=== PATIENT | female | born 1960 | race Caucasian/White ===

== ENCOUNTER 2020-11-15 16:46 | Outpatient (CLI) | payer BC, SELFPAY ==
--- NOTE | ~2020-11-15 | MM_ITS ---
EXAMINATION: MM screening [facility] BI w mell HISTORY: Screening mammogram TECHNIQUE: Craniocaudal and mediolateral oblique 3-D tomosynthesis images were obtained and synthetic 2-D images were generated. CAD analysis was submitted and interpreted. COMPARISON: 06/17/2019, 05/26/2019, 05/27/2017 BREAST PARENCHYMAL COMPOSITION: The breasts are almost entirely fatty. FINDINGS: There is no evidence of suspicious mass, calcification, or architectural distortion to sugg est malignancy in either breast. There has been no suspicious interval change. IMPRESSION: 1. No mammographic evidence of malignancy. 2. Recommend routine screening mammography in one year. BI-RADS Category 1: Negative Reviewed, dictated and finalized at location A.
== END 2020-11-15 16:47 | disposition home or self-care (01) ==
LOC: ANHIMG 16:48
PROVIDERS: PCP Internal Medicine; Visit Provider Obstetrics & Gynecology
DX: Z12.31 Encounter for screening mammogram for malignant neoplasm of breast (principal)
CPT/HCPCS: 77063; 77067

== ENCOUNTER 2021-04-10 11:25 | Outpatient (CLI) | payer BC, SELFPAY ==
--- NOTE | 2021-04-10 11:31 | ECG_ITS ---
Measurements Intervals [place] Rate: 60 P: -53 [place]: 352 QRS: -5 QRSD: 87 T: 40 QT: 402 QTc: 402 Interpretive Statements SINUS RHYTHM BORDERLINE AV CONDUCTION DELAY BORDERLINE ECG Electronically Signed On 04-10-2021 12:35:29 CDT by Brando Tompkins D.O.
== END 2021-04-10 11:26 | disposition home or self-care (01) ==
LOC: ANHLAB 11:29
PROVIDERS: PCP Internal Medicine; Visit Provider Internal Medicine
DX: I10 Essential (primary) hypertension (principal)
CPT/HCPCS: 93005

== ENCOUNTER 2021-12-31 14:52 | Outpatient (CLI) | payer BC, SELFPAY ==
--- NOTE | ~2021-12-31 | MM_ITS ---
EXAMINATION: MM screening [facility] BI w mell HISTORY: Screening TECHNIQUE: Craniocaudal and mediolateral oblique 3-D tomosynthesis images were obtained and synthetic 2-D images were generated. CAD analysis was submitted and interpreted. COMPARISON: Comparison to multiple prior studies sequentially, with oldest reviewed study dated 04/07. BREAST PARENCHYMAL COMPOSITION: The breasts are almost entirely fatty. FINDINGS: There is no evidence of suspicious mass, calcification, or architectural distortion to sugg est malignancy in either breast. There has been no suspicious interval change. IMPRESSION: 1. No mammographic evidence of malignancy. 2. Recommend routine screening mammography in one year. BI-RADS Category 1: Negative Reviewed, dictated and finalized at location A.
== END 2021-12-31 14:53 | disposition home or self-care (01) ==
LOC: ANHIMG 14:54
PROVIDERS: PCP Internal Medicine; Visit Provider Obstetrics & Gynecology
DX: Z12.31 Encounter for screening mammogram for malignant neoplasm of breast (principal)
CPT/HCPCS: 77063; 77067

== ENCOUNTER 2022-05-10 12:31 | Outpatient (CLI) | payer BC, SELFPAY ==
[2022-05-10 13:55] LABS: Anion Gap 12 mmol/L (8-16); Blood Urea Nitrogen 24 mg/dL (7-17); Calcium 8.8 mg/dL (8.4-10.2); Carbon Dioxide 29 mmol/L (22-30); Chloride 99 mmol/L (98-107); Estimated Glomerular Filt Rate > 60; Glucose 91 mg/dL (65-110); Potassium 3.9 mmol/L (3.4-5.0); Sodium 140 mmol/L (137-145)
== END 2022-05-10 12:32 | disposition home or self-care (01) ==
LOC: ANHSURGERY 12:35
PROVIDERS: Anesthesiology; PCP Internal Medicine; Visit Provider Urology
DX: Z79.899 Other long term (current) drug therapy (principal); Z01.818 Encounter for other preprocedural examination
CPT/HCPCS: 36415; 80048

== ENCOUNTER 2022-05-13 01:28 | Day surgery (SDC) | payer BC, SELFPAY ==
--- NOTE | 2022-04-26 10:24 | PM.IMHP ---
H&P: HPI History of Present Illness Date/Time: 04/26/22 10:24 Chief Complaint: Urge incontinence Narrative: 61-year-old with urge incontinence. InterStim device in place since 2014. She has less than 6 months of battery life left. She is here today for battery placement. The lead is working well. Will not disturbed sleep Review of Systems Review of Systems: All systems reviewed & are unremarkable except as noted in HPI and below PMFSH Past Medical History Medical History Bleeding disorder Family History Family History Mother Diabetes mellitus Family history of arthritis Family history of pancreatic cancer Sibling Family history of blood dyscrasia Hypertension Father Family history of blood dyscrasia Asthma Family history of cardiovascular disease, Onset Age: 75 Family history of heart disease in male family member before age 55 Social History Social History Smoking status: Former smoker Second hand tobacco smoke exposure: No Alcohol intake: current Alcohol use details: rarely Substance use: never Substance use type: does not use Meds Home Medications and Allergies Home Medications Medication Instructions Recorded Confirmed Type cholecalciferol (vitamin D3) 25 5,000 unit PO DAILY 11/30/20 03/21/22 History mcg (1,000 unit) capsule calcium carbonate 500 mg calcium 500 mg PO DAILY 09/11/21 03/21/22 History (1,250 mg) tablet cyanocobalamin (vitamin B-12) 1,000 mcg PO DAILY 09/11/21 03/21/22 History 1,000 mcg capsule multivitamin (Daily Multi-Vitamin 1 tablet PO DAILY 09/11/21 03/21/22 History tablet) esomeprazole magnesium 40 mg See Rx Instructions .Route 11/05/21 03/21/22 Rx capsule,delayed release .COMPLEX #90 caps levothyroxine 75 mcg tablet See Rx Instructions .Route 03/08/22 03/21/22 Rx .COMPLEX #90 tabs metoprolol tartrate 50 mg tablet See Rx Instructions .Route 03/08/22 03/21/22 Rx .COMPLEX #180 tabs hydrochlorothiazide 12.5 mg tablet 12.5 mg PO DAILY #90 tabs 03/21/22 03/21/22 Rx rosuvastatin 10 mg tablet 10 mg PO DAILY #90 tabs 03/21/22 03/21/22 Rx losartan 100 mg tablet 100 mg PO DAILY #90 tabs 04/09/22 Rx amitriptyline 75 mg tablet 75 mg PO QHS #90 tabs 04/22/22 Rx Allergies Allergy/AdvReac Type Severity Reaction Status Date / Time NSAIDS (Non-Steroidal Allergy Unknown Unknown Verified 03/21/22 07:03 Anti-Inflamma codeine AdvReac Unknown NAUSEA/VOMI Verified 03/21/22 07:03 TING Exam Narrative: No acute distress Normal review Alert orient x3 Assessment and Plan Assessment and plan (1) Urge incontinence: Code(s): N39.41 - Urge incontinence Status: Acute Assessment and Plan: Exchange of her neurostimulator battery. Risks of bleeding, infection, device damage reviewed. Agrees to proceed
[2022-05-08 14:39] VITALS: BMI 39.1
--- NOTE | 2022-05-08 14:43 | PC.NURSE ---
Report to the Outpatient Waiting Room, entrance under the green pavilion located off [facility], at time 10:30 on date 05/13/22. Planned Procedure Time: 12:30. Time changes happen often and if your time is changed the preop area will call you the afternoon before. - You and your visitor will be asked to self-screen and do not enter if you have any COVID symptoms. - We encourage only one visitor and NO visitors under age 16 are allowed at this time. Your visitor will receive communication by the phone number that is given day of service. - The patient visitor is requested to social distance or may leave the building when not with patient due to restrictions. - A mask is OPTIONAL within the hospital. Patients may have clear liquids (water, carbonated beverages, clear teas, apple juice) until 3 hours prior to surgery (9:30) with a maximum of 20 ounces. - No food from midnight until time of surgery Take the following medications with a SIP of water the morning of surgery: LEVOTHYROXINE, METOPROLOL Medications to discontinue per physician: VITAMINS Date to take last dose: 05/09/22 Please no make-up, nail colombian, hairspray, perfume, deodorant, or body powder the day of surgery. No jewelry (including any body piercings) or valuables the day of surgery, leave them at home. Please take a shower or bath the night before, or the morning of, surgery with an antibacterial soap. Wear comfortable, loose fitting clothing. - Jewelry must be removed prior to entering the operating room. Rings and piercings that are not removed may be cut off. - The hospital will not accept responsibility for valuables. - Please leave all valuables, including medications, at home the day of surgery. If you are going home after surgery, a licensed waste collection driver must drive you home. - NO public transportation without another adult. - We recommend that an adult stay with you for 24 hours following discharge. - We also recommend that you do not drive, make important decision, drink alcoholic beverages, or take any drugs that were not prescribed by your health care provider for at least 24 hours after your discharge time. Follow any additional instructions given to you from your surgeon. If you or anyone in your household have experienced Covid symptoms in the past week, please notify your surgeon or the nurse liaison at the phone number below for possible testing. Telephone instructions given to KIRK DIAMOND and asked if any additional questions and then verbalized understanding. Patient advised to call surgeon office or pre surgery nurse liaison [phone] if any additional questions.
--- NOTE | 2022-05-13 07:13 | WPDHPUPDATE1 ---
History and Physical Update Update Date/Time: 05/13/22 07:13 History and Physical has been reviewed, including an updated exam of the patient. There are NO changes in the patient's condition. Risks, benefits, and alternatives have been discussed and questions answered. Patient agrees to proceed with procedure.
[2022-05-13] MEDS: LACTATED RINGERS 1,000 ML 30 ML IV CONT (11:00)
[2022-05-13 11:20] VITALS: BP 142/70; PULSE 67; RESP 16; TEMP 36.7; O2SAT 100
[2022-05-13] MEDS: ceFAZolin 2 GM/D5W 50 ML 2 GM/50 ML BAG IVPB (12:30)
[2022-05-13 12:40] VITALS: BP 185/84; PULSE 62; RESP 16; O2SAT 95
[2022-05-13 12:50] VITALS: BP 165/77; PULSE 65; RESP 18; O2SAT 95
[2022-05-13] MEDS: BUPIVACAINE/EPINEPHRINE 0.25% 50 ML VIAL INFILTRATE (13:00)
[2022-05-13 13:01] VITALS: BP 150/82; PULSE 56; RESP 16; O2SAT 100
--- NOTE | 2022-05-13 15:42 | P.OP_ITS ---
Procedure Note - Detailed Date of Procedure 05/13/22 Pre-op Diagnosis Urinary Urge Incont Post-op Diagnosis Same Procedure Performed Exchange of neurostimulator battery, and complex neurostimulator programming impedance check Surgeon Tim Colunga MD Bilingual Loan Processor None Anesthesia Local Indications This is a woman with InterStim device in place since 2014. Her battery is reaching end of service. The lead looks normal on x-ray. She is receiving symptomatic benefit. He is here today for a battery exchange. In light of her comorbidities and the minimally invasive nests of this procedure were gone do this under local anesthesia. She understands risks of bleeding, infection, maged ge to the lead. She is to proceed Description of Procedure She has correctly identified. Informed consent obtained. She from the operating room. She was placed in prone position. Lower back and buttock were prepped and draped in a sterile fashion. Time-out performed. I anesthetized the skin with cord% Marcaine with epinephrine. I did this over the site of the previously placed battery. I incised the skin. I easily explanted the battery. A new battery was programmed. Appropriate connections were made. It was placed into the pocket. Impedances were checked and found to be normal. I irrigated out the wound copiously. I assured hemostasis. I closed subcutaneous tissues with 2-0 Vicryl. Skin with 4-0 Vicryl. Glue was applied. She was awakened transferred to PACU in stable condition Implants InterStim battery Estimated Blood Loss 2 Drains No Packing No Pathology None sent Complications No immediate complications Condition Stable
== END 2022-05-13 13:27 | disposition home or self-care (01) ==
PROVIDERS: PCP Internal Medicine; Visit Provider Urology
PROC: (CPT 64590; principal; 2022-05-13 12:30)
DX: Z45.42 Encounter for adjustment and management of neurostimulator (principal); N39.41 Urge incontinence; Z87.891 Personal history of nicotine dependence
CPT/HCPCS: 64590; C1767; C1787; J0690; J7120

== ENCOUNTER 2023-06-04 09:21 | Emergency (ER) | payer BC, SELFPAY ==
[2023-06-04] VITALS (23 sets, daily range): BP systolic 88–147; BP diastolic 57–88; PULSE 73–88; RESP 12–26; TEMP 36.9; O2SAT 93–98
--- NOTE | ~2023-06-04 | CT_ITS ---
EXAMINATION: CTA chest PE protocol DATE: 06/04/2023 13:41 PHYTOCHEMISTRY PROFESSOR INDICATION: Shortness of breath. Positive d-dimer. Cough with wheezing. TECHNIQUE: Computed tomographic angiography (CTA) of the chest was performed with 100 mL Omnipaque-35 0 intravenous contrast. The dose-length product was 987.67 mGy-cm. Maximum intensity projection 3D-re constructions of the aorta and other arteries were constructed by the technologist on a separate work station. COMPARISON: 6 3 dated 06/04/[address] dated 01/20/2015. FINDINGS: There is a 1.4 x 1.2 cm mass of the right lower lobe, image 56. Stable 5 mm right lower lob e nodule, image 72. Study is technically adequate without evidence for pulmonary embolism. No signifi cant pleural or pericardial effusion. There are changes of gastric bypass surgery. There are probable gallstones with gallbladder sludge. No evidence for aortic aneurysm or dissection. No focal airspace consolidation. There is dependent atelectasis. IMPRESSION: 1. No evidence for pulmonary embolism. 2: Spiculated right lower lobe nodule measuring 1.4 x 1.2 cm, compared with 1.2 x 0.8 cm on prior exa mination. Slow-growing neoplasm not excluded. Recommend correlation with pet/CT scan. Reviewed, dictated and finalized at location B. OCHEMISTRY PROFESSOR IMPRESSION: 1. No evidence for pulmonary embolism. 2: Spiculated right lower lobe nodule measuring 1.4 x 1.2 cm, compared with 1.2 x 0.8 cm on prior examination. Slow-growing neoplasm not excluded. Recommend c orrelation with pet/CT scan.
--- NOTE | ~2023-06-04 | XR_ITS ---
EXAMINATION: XR chest 2V 06/04/2023 09:55 INDICATION: Cough and wheezing PROCEDURE: 2 view chest COMPARISON: Comparison to multiple prior studies sequentially, with oldest reviewed study dated 03/05. FINDINGS: The lungs are clear. The cardiomediastinal silhouette is within normal limits. There are no pleural effusions. There is no pneumothorax suspected. IMPRESSION: 1: NO ACUTE CARDIOPULMONARY DISEASE. Reviewed, dictated and finalized at location B. RETE PRECAST MOULDER
--- NOTE | 2023-06-04 11:38 | ECG_ITS ---
Measurements Intervals [place] Rate: 81 P: 28 MD: 176 QRS: -15 QRSD: 86 T: 42 QT: 383 QTc: 445 Interpretive Statements SINUS RHYTHM LOW QRS VOLTAGE IN PRECORDIAL LEADS BORDERLINE R WAVE PROGRESSION, ANTERIOR LEADS BASELINE ARTIFACT- II, III, AVR, AVL, AVF BORDERLINE ECG COMPARED TO ECG 04/10/2021 11:58:25 NO SIGNIFICANT CHANGES Electronically Signed On 06-04-2023 15:13:49 AIR DRILL OPERATOR by Brando Tompkins D.O.
[2023-06-04 11:50] LABS: Basophils Percent Auto 0.2 % (0.2-1.2); Eosinophils Absolute Auto 0.3 K/mm3 (0-0.3); Eosinophils Percent Auto 1.9 % (0-4.4); Hemoglobin 14.5 g/dL (12.0-15.0); Immature Granulocyte Absolute 0.06 K/mm3 (0.00-0.031); Immature Granulocyte Percent A 0.5 % (0-0.5); Lymphocytes Absolute Auto 0.88 K/mm3 (0.9-3.2); Lymphocytes Percent Auto 6.8 % (18.3-44.2); Mean Corpuscular HGB Conc 32.2 g/dl (32-36); Mean Corpuscular Hemoglobin 27.6 pg (26-34); Mean Corpuscular Volume 85.7 fl (80-100); Mean Platelet Volume 10.1 fl (7.4-10.4); Monocytes Absolute Auto 0.5 K/mm3 (0.1-0.6); Monocytes Percent Auto 3.7 % (2.6-8.5); Neutrophils Absolute Auto 11.3 K/mm3 (1.3-6.7); Neutrophils Percent Auto 86.9 % (45.5-73.1); Platelet Count Result 278 k/mm3 (150-375); Red Blood Count 5.25 M/mm3 (4.2-5.4); Red Cell Distribution Width 14.8 % (11.5-14.5); White Blood Count 12.9 K/mm3 (4.5-10.0)
--- NOTE | 2023-06-04 12:12 | ED.GENADULT ---
HPI - General Adult General Chief complaint: Shortness of Breath/Dyspnea Stated complaint: SOB Time Seen by Provider: 06/04/23 11:39 History of Present Illness HPI narrative: [age] old female presenting to the emergency department for evaluation of increased shortness of breath. Patient reports she had an upper respiratory infection on May 05 that lasted approximately 2 weeks. Patient states she felt improved for about 10 days and then last Friday started developing worsening shortness of breath again. Patient states since that time she has had progressive cough and wheezing. Patient states that she did take a COVID test at home that was negative. Patient denies any prior history of DVT or pulmonary embolism. Related Data Home Medications Medication Instructions Recorded Confirmed cholecalciferol (vitamin D3) 25 5,000 unit PO DAILY 11/30/20 06/02/23 mcg (1,000 unit) capsule calcium carbonate 500 mg calcium 500 mg PO DAILY 09/11/21 06/02/23 (1,250 mg) tablet cyanocobalamin (vitamin B-12) 1,000 mcg PO DAILY 09/11/21 06/02/23 1,000 mcg capsule multivitamin (Daily Multi-Vitamin 1 tablet PO DAILY 09/11/21 06/02/23 tablet) Allergies Allergy/AdvReac Type Severity Reaction Status Date / Time codeine AdvReac Unknown NAUSEA/VOMI Verified 04/03/23 07:56 TING NSAIDS (Non-Steroidal AdvReac Unknown Gastrointestinal Verified 04/03/23 07:56 Anti-Inflamma Upset Review of Systems Review of Systems: All systems reviewed & are unremarkable except as noted in HPI and below PMFSH Past Medical History Medical History Acquired hypothyroidism Bleeding disorder Essential hypertension Pure hypercholesterolemia Surgical History Surgical History H/O gastric sleeve Family History Family History Mother Diabetes mellitus Family history of arthritis Family history of pancreatic cancer Sibling Family history of blood dyscrasia Hypertension Father Family history of blood dyscrasia Asthma Family history of cardiovascular disease, Onset Age: 75 Family history of heart disease in male family member before age 55 Social History Social History Smoking status: Never smoker Second hand tobacco smoke exposure: No Alcohol intake: never Alcohol use details: rarely Substance use: never Substance use type: does not use Lack of Transportation: No Lack of Food: Never True Current Housing: I Have Housing Concerned About Future Housing: No Difficulty Paying Gas/Electric Bills: No Difficulty Paying for Meds: No Currently Unemployed: No Education: High School Diploma/GED Difficulty w/ Childcare or Family Care: No Living arrangements: alone Spiritual care concerns: No Exam Narrative: APPEARANCE: Well appearing, no pain, no distress, well-nourished. HEAD: normocephalic, atraumatic. EYES: PERRLA/EOMI, conjunctivae clear. NOSE: Normal no drainage EARS:TMS clear with good light reflex. THROAT: Pharynx clear, no exudate. NECK: Supple. No adenopathy, no masses. RESPIRATORY: Airway patent, respirations nonlabored. Clear to auscultation bilaterally, no rales, rhonchi, wheezing. CARDIOVASCULAR: Regular rate and rhythm without murmurs rubs or gallops. ABDOMINAL: Soft, nontender, nondistended, normal bowel sounds MUSCULOSKELETAL: Moves all extremities. Strength/ROM intact, No edema, No calf tenderness. NEURO: Alert. Cranial nerves II through XII intact. Good gait. Good coordination SKIN: Warm, dry. Normal Color PSYCHIATRIC: Normal affect/mood. Course Course Emergency Course: 62-year-old female present to the emergency department for evaluation of increased shortness of breath. Patient is afebrile but does have a leukocytosis of 12.9 and a stable hemogl
[2023-06-04] MEDS: ALBUTEROL SULFATE NEB 2.5 MG/3 ML INH INHALATION ×2 (12:18→15:19)
[2023-06-04 12:28] LABS: Influenza A QL RT-PCR Negative (Negative); Influenza B QL RT-PCR Negative (Negative); RSV RNA, RT-PCR Negative (Negative); SARS-CoV-2 RNA PCR Negative (Negative)
[2023-06-04 13:11] LABS: D Dimer 7.23 ug/mL (<0.48)
[2023-06-04 13:15] LABS: Alanine Aminotransferase 30 U/L (6-35); Alkaline Phosphatase 103 U/L (38-126); Anion Gap 10 mmol/L (8-16); Aspartate Amino Transferase 32 U/L (14-36); Blood Urea Nitrogen 24 mg/dL (7-17); Calcium 8.7 mg/dL (8.4-10.2); Carbon Dioxide 27 mmol/L (22-30); Chloride 98 mmol/L (98-107); Estimated CRCL calculation 61 ml/min; Estimated Glomerular Filt Rate 50; Glucose 100 mg/dL (65-110); Potassium 3.6 mmol/L (3.4-5.0); Sodium 135 mmol/L (137-145)
[2023-06-04 13:18] LABS: NT Pro B Type Natriuretic Pept 49 pg/mL (19.9-100)
--- NOTE | 2023-06-04 14:31 | PC.NURSE ---
pt ambulated with pulse ox. pt tolerated well. only dropped to 92 %. states feels much better than she did this am. upon getting back to bed sats quickly increased to 95%. pt states she wouldnt have been able to walk that distance this morning.
== END 2023-06-04 15:34 | disposition home or self-care (01) ==
PROVIDERS: Emergency Provider Emergency Medicine; PCP Nurse Practitioner Family
DX: R06.00 Dyspnea, unspecified (principal); I10 Essential (primary) hypertension; E03.9 Hypothyroidism, unspecified; Z79.899 Other long term (current) drug therapy; Z20.822 Contact with and (suspected) exposure to COVID-19
CPT/HCPCS: 36415; 71046; 71275; 80053; 83880; 85025; 85380; 87637; 93005; 94640; 99284; Q9967

== ENCOUNTER 2023-06-19 09:08 | Outpatient (CLI) | payer BC, SELFPAY ==
--- NOTE | ~2023-06-19 | PE_ITS ---
EXAMINATION: PET skull to mid thigh DATE: 06/19/2023 11:15 INDICATION: Other nonspecific abnormal finding in lung field. TECHNIQUE: Blood glucose level was 88 mg/dL. 9.802 mCi of 18-fluorodeoxyglucose (18-FDG) was administ ered i.v. Low dose computed tomography (CT) images were acquired from the base of the brain to the pr oximal thighs for attenuation correction and anatomic localization. Automated exposure control was em ployed. Dose-length product (DLP) was 1309 mGy-cm. Positron emission tomography (PET) images were acq uired in the same distribution. COMPARISON: Chest CT 06/04/2023, 01/20/15 FINDINGS: Head/neck: There are no pathologically enlarged lymph nodes. Chest: In the right lower lobe at the hilum, there is a 12 mm nodule without increased activity. No p leural effusion. The heart size is normal. No pericardial effusion. Abdomen/pelvis/proximal thighs: There are changes of gastric sleeve procedure. The liver is normal. T here are gallstones in the gallbladder, which is normal in size. The spleen, pancreas, adrenal glands , and kidneys are normal. There is an electrode in left S3 neural foramen. There are no dilated loops of bowel. The appendix is normal. There are no pathologically enlarged lymph nodes. There is no free intraperitoneal fluid. There are bilateral total hip arthroplasties. There is no osseous malignancy. IMPRESSION: 1. 12 mm right lower lobe pulmonary nodule without increased activity, not significantly changed from 11 mm on 01/20/2015, likely benign. Reviewed, dictated and finalized at location A. GER TRANSPLANT IMPRESSION: 1. 12 mm right lower lobe pulmonary nodule without increased activity, not sign ificantly changed from 11 mm on 01/20/2015, likely benign.
[2023-06-19 09:39] LABS: Glucose Point of Care 88 mg/dl (65-105)
== END 2023-06-19 09:09 | disposition home or self-care (01) ==
PROVIDERS: PCP Nurse Practitioner Family; Visit Provider Nurse Practitioner Family
DX: R91.1 Solitary pulmonary nodule (principal)
CPT/HCPCS: 78815; A9552

== ENCOUNTER 2023-11-11 16:46 | Outpatient (CLI) | payer BC, SELFPAY ==
--- NOTE | ~2023-11-11 | MM_ITS ---
EXAMINATION: MM screening [facility] BI w mell HISTORY: Screening mammogram TECHNIQUE: Craniocaudal and mediolateral oblique 3-D tomosynthesis images were obtained and synthetic 2-D images were generated. CAD analysis was submitted and interpreted. COMPARISON: 12/31/2021, 11/15/2020 bilateral screening mammogram examinations BREAST PARENCHYMAL COMPOSITION: The breasts are almost entirely fatty. FINDINGS: There is no evidence of suspicious mass, calcification, or architectural distortion to sugg est malignancy in either breast. There has been no suspicious interval change. IMPRESSION: 1. No mammographic evidence of malignancy. 2. Recommend routine screening mammography in one year. BI-RADS Category 1: Negative Reviewed, dictated and finalized at location A.
== END 2023-11-11 16:47 | disposition home or self-care (01) ==
PROVIDERS: PCP Nurse Practitioner Family; Visit Provider Obstetrics & Gynecology
DX: Z12.31 Encounter for screening mammogram for malignant neoplasm of breast (principal)
CPT/HCPCS: 77063; 77067

== ENCOUNTER 2024-06-07 10:13 | Outpatient (CLI) | payer BC, SELFPAY ==
[2024-06-28 16:25] VITALS: BMI 42.7
--- NOTE | 2024-06-28 16:25 | P.SLEEP_ITS ---
Sleep Study - Home Unattended Date of Study: 06/07/24 Ordering Provider: Konrad Mills APRN Interpreting Provider: Silvia Gunter, DO Home Sleep Study Type: Watch PAT Height: 1.68 m Weight: 120.202 kg Body Mass Index: 42.7 Neck Circumference (inches): 16.75 [place]: 4 Reason for Sleep Study Evaluation for sleep apnea Sleep History The patient is a 63-year-old female that had a sleep study ordered by the [facility] for evaluation of sleep apnea. The patient denies awakening from sleep short of breath. She denies awakening at night with heartburn, belching or cough. She occasionally snores but is never loud enough that others complain. She denies having trouble sleeping when she has a cold. She denies waking up gasping for air throughout the night. She denies having breathing problems at night observed by herself or others. She denies sweating excessively at night. She denies having heart palpable or irregular heartbeats during the night. She rarely falls asleep during the day but never while driving. She denies sleep paralysis, cataplexy and hypnagogic / hypnopompic hallucinations. She denies having trouble at school or work due to sleepiness. She denies feeling afraid of going to sleep. She denies having nightmares. She rarely remembers her dreams. She denies having thoughts racing through her mind. She denies feeling sad, depressed or anxious. She denies having muscular tension. She rarely notices parts of her body jerk. She denies kicking during the night. She denies having crawling and aching feelings in her legs and denies having leg pain during the night. She frequently grinds her teeth during sleep but never awakens with morning jaw pain. She is frequently bothered by pain during the day but never awakened by pain during the night. She occasionally wakes up feeling stiff in the morning. She occasionally wakes up with sore or achy muscles. She occasionally wakes up with pain in the neck, spine or other joints. She goes to bed at 10:15 p.m. on weekdays and at 11:00 p.m. on the weekends. It takes her 15-20 minutes to fall asleep. She wakes up once throughout night for unknown reasons but is able to fall back asleep within 5 minutes. She wakes up at 6:00 a.m. on weekdays and at 7:00 a.m. on the weekends. She typically gets 6-7 hours of sleep per night. She will stay in bed for 5 minutes after waking up in the morning. She currently lives alone. She denies consuming any caffeinated beverages within 2 hours of bedtime. She denies engaging in physical exercise before bedtime. She will watch television before falling asleep. She denies taking naps in afternoon or evening. She denies consuming caffeinated beverages throughout the day. She denies tobacco, alcohol and recreational drug use. [facility] Past Medical History Medical History Bleeding disorder Acquired hypothyroidism Essential hypertension Pure hypercholesterolemia Surgical History Surgical History History of bladder suspension procedure History of right hip replacement 07/2012 History of left hip replacement 10/2005 H/O gastric sleeve Family History Family History Mother Diabetes mellitus Family history of arthritis Family history of pancreatic cancer Sibling Family history of blood dyscrasia Hypertension Father Family history of blood dyscrasia Asthma Family history of cardiovascular disease, Onset Age: 75 Family history of heart disease in male family member before age 55 Social History Social History Smoking status: Never smoker Second hand tobacco smoke exposure: No Alcohol intake: never Alcohol use details: rarely Substance use: never Substance use type: does not use Do You Feel Safe in your Home?: Yes Lack of Transportation: No Lack of Food: Never True Current Housing: I Have Housing Concerned About Future Housing: No Difficulty Paying Gas/Electric Bills: No Difficulty Paying for Meds: No Currently Unemployed: No Education: High School Diploma/GED Difficulty w/ Childcare or Family Care: No Living arrangements: alone Occupation/Education: 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 Gender identity (if verbalized by the patient): Female Sexual Orientation (if Verbalized by the Patient): Straight or Heterosexual Spiritual care concerns: No Agree to blood products: Yes Medications Home Medications ?Medication ?Instructions ?Recorded ?Confirmed ?Type cholecalciferol (vitamin D3) 25 5,000 unit PO DAILY 11/30/20 05/04/24 History mcg (1,000 unit) capsule calcium carbonate 500 mg PO DAILY 09/11/21 05/04/24 History cyanocobalamin (vitamin B-12) 1,000 mcg PO DAILY 09/11/21 05/04/24 History 1,000 mcg capsule multivitamin (Daily Multi-Vitamin 1 tablet PO DAILY 09/11/21 05/04/24 History tablet) bupropion HCl 150 mg 24 hr tablet, 150 mg PO QAM #90 tabs 03/01/24 05/04/24 Rx extended release (Wellbutrin XL) amitriptyline 75 mg tablet See Rx Instructions .Route 03/25/24 05/04/24 Rx .COMPLEX #90 tabs esomeprazole magnesium 40 mg See Rx Instructions .Route 04/05/24 05/04/24 Rx capsule,delayed release .COMPLEX #90 caps hydrochlorothiazide 12.5 mg tablet 12.5 mg PO DAILY #90 tabs 04/05/24 05/04/24 Rx levothyroxine 75 mcg tablet See Rx Instructions .Route 04/05/24 05/04/24 Rx .COMPLEX #90 tabs losartan 100 mg tablet 100 mg PO DAILY #90 tabs 04/05/24 05/04/24 Rx metoprolol tartrate 50 mg tablet See Rx Instructions .Route 04/05/24 05/04/24 Rx .COMPLEX #180 tabs rosuvastatin 10 mg tablet See Rx Instructions .Route 04/05/24 05/04/24 Rx .COMPLEX #90 tabs topiramate 100 mg tablet 100 mg PO BID #60 tabs 05/04/24 05/04/24 Rx metformin 500 mg tablet,extended 500 mg PO BID 90 days #180 tabs 05/06/24 Rx release 24 hr tirzepatide (weight loss) 2.5 2.5 mg (0.5 mL) subcut WEEKLY #2 mL 05/27/24 Rx mg/0.5 mL subcutaneous pen injector (Zepbound) Sleep Procedure The sleep study was completed using WatchPAT a technically adequate device with seven channels: peripheral arterial tone, actigraphy, body position, snore, respiratory movement, pulse oximetry, sleep staging, and heart rate. Prior to using the device, the patient received verbal and written instructions for its application and was provided with the help desk phone number for additional telephonic instruction with 24-hour availability of qualified personnel to answer questions. The study was scored using CMS guidelines. Sleep Architecture The total recording time is 7 hrs, 36 min. The total sleep time is 6 hrs, 49 min. Sleep latency is 6 minutes. REM latency is 82 minutes. The patient had 7 episodes of waking. Sleep architecture shows 21.2% deep sleep, 44.9% light sleep, and (as % Total Sleep Time) showed NREM (Light 44.9%; Deep 21.2%), and a 33.8% stage REM. The patient spent 71.8% of total sleep time in the supine position. Sleep efficiency was 89.69. Respiratory Analysis The overall AHI (pAHI 4%:) is 10.9. The central AHI is 0.6. The AHI was 0.2 in NREM and 33.3 in REM sleep. The AHI was 14.5 in Supine and 2.1 in Non-supine sleep. Percent of Chris Arango respirations is 0.0. Oximetry Data The oxygen desaturation index (MARIA M 4%:) is 10.0. The mean saturation is 93%, and the lowest saturation is 79%. Time spent with saturation < 88% is 19.8 minutes. Snoring Profile Snoring average intensity is 47 dB. The patient snored above 45 decibels for 197.8 minutes, 48.3% of sleep time. Cardiac Profile The average pulse rate is 55 beats per minutes. The lowest pulse rate is 44 bpm. The highest pulse rate reported is 111 bpm. Atrial fibrillation was not detected. Premature beats occur <0.1 per minute. Assessment and Plan Assessment and Plan (1) FLORECITA (obstructive sleep apnea): Code(s): G47.33 - Obstructive sleep apnea (adult) (pediatric) Status: Acute Assessment and Plan: The patient had an overall AHI of 10.9 with desaturation down to 79%. This is consistent with mild sleep apnea. Due to the patient's hypertension, she qualifies for treatment. The patient spent 19.8 minutes with an SpO2 < 88%. She has no history of asthma or COPD and is not on any pulmonary medications. The amount of time spent with an SpO2 < 88% is out of proportion to the severity of her sleep apnea. The patient has already had imaging of her chest done in regards to a lung mass. I recommend that the patient have a PFT for evaluation of suspected underlying lung disease. I recommend that the patient have CPAP Titration study with the use of a hypnotic (Lunesta 2-3 mg or Ambien 5-10 mg) to ensure we obtain enough sleep data and find an optimal pressure setting. Data The data obtained during this sleep study is adequate for interpretation. Certification This sleep study has been reviewed by a board certified sleep medicine physician.
== END 2024-06-08 12:53 | disposition home or self-care (01) ==
LOC: ANHCSM 10:15
PROVIDERS: PCP Nurse Practitioner Family; Visit Provider Nurse Practitioner Family
DX: G47.30 Sleep apnea, unspecified (principal); R06.83 Snoring; G47.33 Obstructive sleep apnea (adult) (pediatric)
CPT/HCPCS: 95800

== ENCOUNTER 2025-03-10 13:51 | Outpatient (CLI) | payer BC, SELFPAY ==
--- NOTE | ~2025-03-10 | US_ITS ---
US venous doppler [facility] - 03/10/2025 15:03 CDT History: 64 years old Female with left lower extremity pain and swelling. Real-time sonographic images of the left lower extremity venous system were obtained. Color Doppler sonography and spectral waveform analysis were performed. No prior studies for comparison. The left sapheno-femoral junctions are patent. The left common femoral, superficial femoral, popliteal and posterior tibial veins are compressible and without evidence of echogenic thrombus. Impression: No evidence of deep venous thrombosis Reviewed, dictated and finalized at location N. Impression: No evidence of deep venous thrombosis
== END 2025-03-10 13:52 | disposition home or self-care (01) ==
LOC: MICIMG 13:52
PROVIDERS: PCP Nurse Practitioner Family; Visit Provider Internal Medicine
DX: M79.89 Other specified soft tissue disorders (principal)
CPT/HCPCS: 93971

== ENCOUNTER 2025-03-30 13:56 | Outpatient (CLI) | payer BC, SELFPAY ==
--- OUTSIDE RECORDS SUMMARY | 2001-04-20 09:30 | XMS_ITS | Continuity of Care Document ---
Author Organization [facility] Address [address] [place] [address] [place] [address] Phone Care Team Providers Care Steel Erector Apprentice Name Role Phone Latrell Quarles DO Unavailable Unavailable Advance Directives Directive Yes / No Effective Date File Name No Information Encounters Encounter Description Practice Location Reason(s) For Visit Diagnoses Date Provider Providers Copied on Encounter [facility], [address], [place], [place], [id number], [place] tel:[phone] [facility] No Information Willam Capellan. [address] [facility], [place], [address], [place]. tel:[phone] Family History Family Member Type Diagnosis Age At Onset No Information Payers Payer name Insurance type Covered democrat ID Authoriza tion(s) No Information Social History Type Description Quantity Date Captured Comments Sex Female Smoking Status No Information Chief Complaint And Reason For Visit No Information Reason For Referral Reason For Referral No Information History Of Present Illness Encounter Date Complaint History Of Prese nt Illness No Information Functional Status Date Functional Assessmen t No Information Instructions Date Instruction Additional Infor mation No Information Assessments Type Assessment Date No Information Patient Care Teams Name Effective Dates (start - stop) Status Members No Information
--- NOTE | ~2025-03-30 | MM_ITS ---
EXAMINATION: MM screening [facility] BI w mell HISTORY: Screening TECHNIQUE: Craniocaudal and mediolateral oblique 3-D tomosynthesis images were obtained and synthetic 2-D images were generated. CAD analysis was submitted and interpreted. COMPARISON: 11/11/2023 BREAST PARENCHYMAL COMPOSITION: Not Dense: The breasts are almost entirely fatty. FINDINGS: There is no evidence of suspicious mass, calcification, or architectural distortion to suggest malignancy in either breast. [There has been no significant interval change. IMPRESSION: 1. No mammographic evidence of malignancy. Recommend routine screening mammography in one year. BI-RADS Category 1: Negative Reviewed, dictated, and finalized at Location A. Reviewed, dictated and finalized at location Q. IMPRESSION: 1. No mammographic evidence of malignancy. Recommend routine screening mammogra phy in one year. BI-RADS Category 1: Negative
--- OUTSIDE RECORDS SUMMARY | 2025-03-30 14:03 | XMS_ITS | Clinical Summary ---
Author Organization [facility] Medical Office [facility] Address [address] [place] [address] Care Team Providers Care Blue Prints Trimmer Name Role Phone Juan Chavez MD Primary Care Provider [phone] Allergies Active Allergy Reactions Criticality Noted Date Comments Codeine Nausea and Vomiting Low 04/24/2017 Tylenol with Codeine Nsaids (Non-Steroidal Anti-Inflammatory Drug) Other (See Comments) Low 06/12/2021 S/P laparoscopic sleeve gastrectomy on 06/11/21. Medications losartan (COZAAR) 100 mg tablet Take 1 Tablet by mouth daily. Active hydroCHLOROthia zide (HYDRODIURIL) 12.5 mg tablet Take 1 Tablet by mouth daily. Active esomeprazole (NexIUM) 40 mg Capsule, Delayed Release(E.C.) Take 1 Capsule by mouth daily. Active cholecalciferol , vitamin D3, 5,000 unit Take 1 Tablet by mouth daily. Active rosuvastatin (CRESTOR) 10 mg tablet Take 10 mg by mouth daily. Active levothyroxine 75 mcg tablet Take 75 mcg by mouth daily in the morning. Active CALCIUM CARBONATE ORAL Take by mouth. Active cyanocobalamin 1,000 mcg Tablet Take 1,000 mcg by mouth daily. Active amitriptyline (ELAVIL) 75 mg tablet Take 75 mg by mouth daily at bedtime. 09/28/2022 Active metoprolol tartrate (LOPRESSOR) 50 mg tablet Take 1 Tablet by mouth 2 times daily. 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 Mild chronic gastritis. There is no significant atypia, necrosis, or mitotic activity (though there is less than 5 mm of tumor present to evaluate). 06/19/23 - PET/CT at [facility] in [place], [place] - marginally larger RLL lung nodule, otherwise negative. Assessment & Plan (09/21/2024 2:08 PM CDT): She has no clinical evidence of recurrent malignant GIST. Encouraged her to follow-up with her PCP and be referred back to gastroenterology service for surveillance EGD and screening colonoscopy periodically. Will contact with CBC and CMP results from today and should they be abnormal, will follow it up with CT scans. Otherwise, I will plan to see her in 1 year with repeat labs. Assessment & Plan (07/11/2023 11:30 AM MANUFACTURING QUALITY ENGINEER): She is stable clinically with no evidence of recurrence of gastrointestinal stromal tumor. Reassured that since the PET scan did not show any abnormal activity and the right lower lobe lung nodule is not FDG avid and stable, there is no need for concern. She has mild leukocytosis with neutrophilia recently which is probably related to recent respiratory infection. I will plan to see her in a year, but advised her to contact us in the interim for nausea, vomiting, abdominal pain, bloody or black stools, unexplained weight loss. Encouraged her to increase her physical activity and cut down calories to try and lose some weight. She verbalized understanding of today's discussion, was satisfied with the office visit, and had no further questions. Assessment & Plan (07/10/2022 2:28 PM MANUFACTURING QUALITY ENGINEER): She remained stable clinically and advised her to contact us for bloody or black stools, abdominal pain, cough, coughing up blood, bone pains or unexplained weight loss. Otherwise, will plan to see her in 1 year. She was satisfied with the office visit and had no further questions. Assessment & Plan (07/11/2021 3:38 PM MANUFACTURING QUALITY ENGINEER): I had a detailed discussion with her and explained that that she was found to have an incidental gastrointestinal stromal tumor of stomach that is very small without any features suggestive of an aggressive behavior like necrosis, high mitotic activity or atypia. Risk of recurrence in this situation is very low and hence, there is no need for adjuvant treatment with imatinib. Reassured her that periodic less frequent monitoring is adequate. Advised her to contact us or her PCP should she develop abdominal pain, bloody or black stools. Otherwise, we will plan to see her in a year. She verbalized understanding of today's discussion, was satisfied with the office visit, and had no further questions. S/P bariatric surgerym lap sleeve 06/11/202101/2021 Prediabetes 02/15/2021 Depression 02/15/2021 Gastroesophageal reflux disease 02/15/2021 Hyperlipidemia 02/15/2021 HTN (hypertension), benign 02/15/2021 Morbid obesity with body mass index of 40.0-49.9 02/15/2021 Encounters Date Type Department Care Team Description 02/22/2025 External Device Data [facility] ABSTRACTION Provider, Abstract 01/19/2025 External Device Data [facility] ABSTRACTION Provider, Abstract 01/19/2025 External Device Data [facility] ABSTRACTION Provider, Abstract from Last 3 Months Family History Medical History Relation Name Comments Hypertension Brother 1 Abdulaziz Heart Disease Brother 2 Júnior [place] Hypertension Brother 2 Júnior Heart Disease Brother 3 Sergio Thyroid Cancer Brother 3 Sergio Hypertension Brother 4 Leoncio Hypertension Daughter 1 Sarina No health issue s Healthy Daughter 2 Tere No health issue s Heart Disease Father Tanner Cortezsch Hypertension Father Tanner [place] Other Father Tanner [place]resch Heart 2000 Heart Disease Maternal Grandfather Nitin Kidney Disease Maternal Grandmother Tamiko Diabetes Mother Gisselle pre diabetic Hypertension Mother Gisselle Other Mother Gisselle 1994 p ancreatic cancer Pancreatic Cancer Mother Gisselle Healthy Paternal Grandfather Ike Heart d isease Unknown Paternal Grandmother Elizabeth Kidney disease Hypertension Sister 1 Michelle Other Sister 1 Michelle Von Wilibrand b leeding disorder Hypertension Sister 2 Taylor Relation Name Status Comments Brother 1 Abdulaziz Alive Brother 2 Júnior Brother 3 Sergio Alive Brother 4 Leoncio Alive Daughter 1 Sarina Alive Daughter 2 Tere Alive Father Tanner [place] Maternal Grandfather Nitin Maternal Grandmother Tamiko Mother Gisselle Paternal Grandfather Ike Paternal Grandmother Elizabeth Sister 1 Michelle Alive Sister 2 Taylor Alive Social History Tobacco Use Types Packs/Day Years Used Date Smoking Tobacco: Never Smokeless Tobacco: Never Alcohol Use Standard Drinks/Week Comments Not Currently 0 (1 standard drink = 0.6 oz pur e alcohol) Maybe 4 drinks a year Comments No Sex and Gender Information Value Date Recorded Sex Assigned at Not on file Legal Sex Female 10:52 AM CDT Gender Identity Not on file Sexual Orientation Not on file Last Filed Vital Signs Vital Sign Reading Time Taken Comments Blood Pressure 118/64 09/21/2024 1:49 PM CDT Pulse 86 09/21/2024 1:49 PM CDT Temperature 36.8 C (98.2 F) 09/21/2024 1:49 PM CDT Respiratory Rate 18 09/21/2024 1:49 PM CDT Oxygen Saturation 94% 09/21/2024 1:49 PM CDT Inhaled Oxygen Concentration - - Weight 111.7 kg (246 lb 4.8 oz) 09/21/2024 1:49 PM CDT Height 170.2 cm (5' 7) 09/21/2024 1:49 PM CDT Body Mass Index 38.58 09/21/2024 1:49 PM CDT Plan of Treatment Upcoming Encounters Date Type Department Care Team (Late st Contact Info) Description 09/21/2025 12:15 PM CDT Appointment [facility] Laboratory Services Adal Abebe [facility] [address] [place] [address] Rohini Jordan MD [address] [place] [address] 09/21/2025 1:15 PM CDT Office Visit [facility] Oncology and Hematology [facility] [address] [facility] [address] [place] [address] Rohini Jordan MD [address] [place] [address] Health Maintenance Due Date Last Done Comments Pre-Diabetes and Diabetes Screening 1960 DTAP/TDAP/TD VACCINES (1 - Tdap) 1977 BREAST CANCER SCREENING 1998 COLORECTAL SCREENING 11/25/2003 Colorectal Cancer Screening 11/25/2003 FIT-DNA Q 3 years 11/25/2003 FIT/FOBT Q 1 year 11/25/2003 Flex Sig/CT Colonography Q 5 years 11/25/2003 PNEUMOCOCCAL VACCINE 50+ YEARS (1 of 1 - PCV) 11/25/19 09 ZOSTER VACCINE (1 of 2) 2008 RSV VACCINE (60+ or ) (1 - Risk 60-74 years 1-dose series) 2018 OSTEOPOROSIS SCREENING 11/25/2023 INFLUENZA VACCINE (#1) 2025 04/21/2021 Medical Devices Implanted Type Area Fish Net Maker Device Identifier Shelf Expiration Date Model / Serial / Lot Clip Crtg Med/Lrg 1112 - [id number] Implanted:Qty: 1 on 06/11/2021 at [facility] Clip N/A: Abdomen [employer] [id number] 01/31/2026 1112 / / [id number] Insurance BCBS BLUE ACCESS/TRUE BLUE PPO RX EXPRESS SCRIPTS Express RX [employer] PLANS (INTERNAL) [facility] Plans Advance Directives For more information, please contact: [phone] * Full Code (Latest Code Status on File) Date Activated Date Inactivated Comments 06/11/2021 11:43 AM 06/12/2021 4:42 PM Care Teams Blue Prints Trimmer Relationship Specialty Start Date End Date Juan Chavez MD [address] [place] [phone] PCP - General Internal Medicine 02/05/21
== END 2025-03-30 13:57 | disposition home or self-care (01) ==
PROVIDERS: PCP Nurse Practitioner Family; Visit Provider Obstetrics & Gynecology
DX: Z12.31 Encounter for screening mammogram for malignant neoplasm of breast (principal)
CPT/HCPCS: 77063; 77067